=== PATIENT | female | born 1975 | race Hispanic/Latino ===

== ENCOUNTER 2017-12-13 00:06 | Emergency (ER) | payer OTHER ==
[2017-12-13] MEDS ORDERED: IBUPROFEN 400 MG TABLET ONE (00:09)
[2017-12-13] MEDS ORDERED: IBUPROFEN 200 MG TAB ONE (00:09)
== END 2017-12-13 00:33 | disposition home or self-care (01) ==
LOC: EDH 00:06
DX: S19.89XA Other specified injuries of other specified part of neck, initial encounter (principal); M54.9 Dorsalgia, unspecified; V49.49XA Driver injured in collision with other motor vehicles in traffic accident, initial encounter; Y93.89 Activity, other specified; Y92.89 Other specified places as the place of occurrence of the external cause; Y99.8 Other external cause status

== ENCOUNTER 2018-05-06 00:50 | Emergency (ER) | payer OTHER ==
[2018-05-06] MEDS ORDERED: ACETAMINOPHEN-CODEINE 300/30MG TAB ONE (01:35)
== END 2018-05-06 05:02 | disposition home or self-care (01) ==
LOC: EDH 00:50
DX: M54.2 Cervicalgia (principal); M54.6 Pain in thoracic spine; Z98.51 Tubal ligation status
CPT/HCPCS: 72125; 72128

== ENCOUNTER 2018-09-25 22:03 | Emergency (ER) | payer OTHER ==
[2018-09-25] MEDS ORDERED: ASPIRIN 325 MG TABLET ONE (22:12)
[2018-09-25 22:17] LABS: BASOPHILS % (AUTO) 0.4 % (0.0-5.0); EOSINOPHILS % (AUTO) 1.8 % (0.0-8.0); HEMATOCRIT 38.3 % (36-48); LYMPHOCYTES % (AUTO) 38.5 % (21.0-51.0); MEAN CORPUSCULAR HEMOGLOBIN 30.3 pg (27.0-33.0); MEAN CORPUSCULAR HGB CONC 33.7 g/dL (32.0-36.0); MEAN CORPUSCULAR VOLUME 89.8 fL (79-99); MONOCYTES % (AUTO) 7.1 % (3.0-13.0); NEUTROPHILS % (AUTO) 52.2 % (40.0-77.0); PLATELET COUNT (AUTO) 292 K/uL (130-400); RED BLOOD CELL COUNT(AUTO) 4.27 MIL/uL (4.00-5.50); RED CELL DISTRIBUTION WIDTH 13.3 % (11.0-15.5)
[2018-09-25 22:28] LABS: CREATININE 0.8 mg/dL (0.5-1.5); POTASSIUM 3.4 mmol/L (3.5-5.1)
[2018-09-25 22:33] LABS: ALBUMIN 3.3 g/dL (3.5-5.0); BILIRUBIN,TOTAL 0.3 mg/dL (0.2-1.0); TOTAL PROTEIN, SERUM 7.3 g/dL (6.0-8.3)
[2018-09-25 22:52] LABS: B-TYPE NATRIURETIC PEPTIDE 6 pg/mL (0-100)
== END 2018-09-26 00:10 | disposition home or self-care (01) ==
LOC: EDH 22:03
DX: R07.89 Other chest pain (principal)
CPT/HCPCS: 36415; 71045; 80053; 82550; 83880; 84484; 85025; 93005; 94761

== ENCOUNTER 2019-01-06 23:38 | Emergency (ER) | payer SELFPAY ==
[2019-01-07 00:23] LABS: APPEARANCE,URINE Cloudy (CLEAR); BILIRUBIN,URINE Negative (NEGATIVE); COLOR,URINE Yellow (YELLOW); GLUCOSE, URINE (UA) Negative (NEGATIVE); KETONES,URINE 40 mg/dL (NEGATIVE); LEUKOCYTE ESTERASE ,URINE Large (NEGATIVE); NITRATE,URINE Positive (NEGATIVE); OCCULT BLOOD,URINE Large (NEGATIVE); PH,URINE 5.5 (5.0-8.0); PROTEIN,URINE Trace (NEGATIVE)
[2019-01-07 00:29] LABS: HCG,QUAL RESULT NEGATIVE (NEGATIVE)
[2019-01-07 00:35] LABS: BACTERIA,URINE Moderate /HPF (None Seen); WBC,URINE 51-100 /HPF (0-1)
[2019-01-07] MEDS ORDERED: LIDOCAINE HCL MPF 1% 5ML VIAL ONE (00:40)
[2019-01-07] MEDS ORDERED: PHENAZOPYRIDINE HCL 200 MG TABLET ONE (00:40)
[2019-01-07] MEDS ORDERED: CEFTRIAXONE SODIUM 1 GM ONE (00:40)
[2019-01-07] MEDS ORDERED: ONDANSETRON ODT 4 MG TAB ONE (00:41)
== END 2019-01-07 01:01 | disposition home or self-care (01) ==
LOC: EDH 23:38
DX: N39.0 Urinary tract infection, site not specified (principal); Z98.51 Tubal ligation status
CPT/HCPCS: 81001; 81025; 87077; 87088; 87186; 96372; 99283; J0696; J3490

== ENCOUNTER 2019-04-04 23:57 | Emergency (ER) | payer OTHER ==
[2019-04-05 00:45] LABS: BASOPHILS % (AUTO) 0.6 % (0.0-5.0); EOSINOPHILS % (AUTO) 1.5 % (0.0-8.0); HEMATOCRIT 38.3 % (36-48); LYMPHOCYTES % (AUTO) 32.7 % (21.0-51.0); MEAN CORPUSCULAR HEMOGLOBIN 30.5 pg (27.0-33.0); MEAN CORPUSCULAR VOLUME 89.7 fL (79-99); MONOCYTES % (AUTO) 7.7 % (3.0-13.0); NEUTROPHILS % (AUTO) 57.5 % (40.0-77.0); PLATELET COUNT (AUTO) 271 K/uL (130-400); RED BLOOD CELL COUNT(AUTO) 4.27 MIL/uL (4.00-5.50); RED CELL DISTRIBUTION WIDTH 13.4 % (11.0-15.5); WHITE BLOOD COUNT (AUTO) 8.1 K/uL (4.8-10.8)
[2019-04-05 00:51] LABS: RAPID GROUP A STREP NEGATIVE (NEGATIVE)
[2019-04-05 00:58] LABS: CREATININE 0.7 mg/dL (0.5-1.5); POTASSIUM 3.2 mmol/L (3.5-5.1)
[2019-04-05 01:03] LABS: ALBUMIN 3.2 g/dL (3.5-5.0); BILIRUBIN,TOTAL 0.3 mg/dL (0.2-1.0)
[2019-04-05 01:46] LABS: HCG,QUAL RESULT NEGATIVE (NEGATIVE)
[2019-04-05 01:48] LABS: AMPHET/METH SCREEN,URINE NEGATIVE (NEGATIVE); BARBITURATE SCREEN, URINE NEGATIVE (NEGATIVE); BENZODIAZEPINES SCREEN,URINE NEGATIVE (NEGATIVE); CANNABINOID SCREEN,URINE NEGATIVE (NEGATIVE); COCAINE SCREEN,URINE NEGATIVE (NEGATIVE); OPIATE SCREEN,URINE NEGATIVE (NEGATIVE); PHENCYCLIDINE SCREEN,URINE NEGATIVE (NEGATIVE)
[2019-04-05] MEDS ORDERED: POTASSIUM CHLORIDE 20 MEQ ERTAB PO ONE (02:06)
== END 2019-04-05 03:58 | disposition home or self-care (01) ==
LOC: EDH 23:57
DX: R51 Headache (principal); R42 Dizziness and giddiness; Z98.51 Tubal ligation status
CPT/HCPCS: 36415; 80053; 80305; 81025; 85025; 87804; 87880; 96360; 96361

== ENCOUNTER 2020-05-18 23:54 | Emergency (ER) | payer SELFPAY ==
[2020-05-19] MEDS ORDERED: FAMOTIDINE 20MG TAB 20 MG TAB ONE (02:37)
[2020-05-19] MEDS ORDERED: PANTOPRAZOLE SODIUM 40 MG TABLET.DR ONE (02:37)
== END 2020-05-19 03:24 | disposition home or self-care (01) ==
LOC: EDH 23:54
DX: U07.1 COVID-19 (principal); B34.9 Viral infection, unspecified; K29.00 Acute gastritis without bleeding; Z79.899 Other long term (current) drug therapy
CPT/HCPCS: 36415; 87633; 87804 ×2; 99283; U0003

== ENCOUNTER 2021-08-18 18:33 | Emergency (ER) | payer OTHER, SELFPAY ==
[~2021-08-18] VITALS: Ht 147.3 cm; Wt 93.0 kg
[2021-08-18] MEDS ORDERED: PHENAZOPYRIDINE HCL 200 MG TABLET PO ONE (19:00)
[2021-08-18] MEDS ORDERED: CEFTRIAXONE 1G VIAL IM ONE (19:00)
[2021-08-18 19:23] LABS: APPEARANCE,URINE Clear (CLEAR); BILIRUBIN,URINE Negative (NEGATIVE); COLOR,URINE Yellow (YELLOW); GLUCOSE, URINE (UA) >=1000 mg/dL (NEGATIVE); KETONES,URINE Trace mg/dL (NEGATIVE); LEUKOCYTE ESTERASE ,URINE Negative (NEGATIVE); NITRATE,URINE Negative (NEGATIVE); OCCULT BLOOD,URINE Negative (NEGATIVE); PH,URINE 5.5 (5.0-8.0); PROTEIN,URINE Negative (NEGATIVE)
[2021-08-18] MEDS ORDERED: LIDOCAINE HCL-MPF 1% 2ML VIAL ONE (19:23)
[2021-08-18 19:28] LABS: RBC,URINE 0-1 /HPF (0-1); WBC,URINE 0-1 /HPF (0-1)
[2021-08-18 19:29] LABS: BACTERIA,URINE Rare /HPF (None Seen); SQUAMOUS EPITHELIAL CELL,UR Few /HPF (0-2); YEAST,URINE BUDDING Rare /HPF (None Seen)
[2021-08-18] MEDS ORDERED: FLUC150T PO (19:47)
[2021-08-18] MEDS ORDERED: PHEN-847 PO (19:47)
[2021-08-18 20:00] VITALS: BP 132/76
[2021-08-18] MEDS ORDERED: FLUCONAZOLE 100 MG TAB PO ONE (20:00)
== END 2021-08-18 20:00 | disposition home or self-care (01) ==
LOC: EDH 18:33
DX: B37.9 Candidiasis, unspecified (principal); R30.0 Dysuria; E11.9 Type 2 diabetes mellitus without complications
CPT/HCPCS: 81001; 96372; 99283; J0696; J3490

== ENCOUNTER 2022-12-25 21:18 | Emergency (ER) | payer BC ==
[~2022-12-25] VITALS: Ht 152.4 cm; Wt 90.0 kg
[~2022-12-25 21:18] MED LIST: FLUC150T PO; PHEN-847 PO
[2022-12-25] MEDS ORDERED: MORPHINE 2 MG SYG IVP ONE (22:00)
[2022-12-25] MEDS ORDERED: LACTATED RINGERS 1000ML 1,000 ML IV ONE (22:00)
[2022-12-25] MEDS ORDERED: ONDANSETRON 4MG INJ IVP ONE (22:00)
[2022-12-25] MEDS ORDERED: ZOSYN 3.375GM +NS 50ML IVPB ONE (22:00)
[2022-12-25 22:08] LABS: BASOPHILS % (AUTO) 0.6 % (0.0-5.0); EOSINOPHILS % (AUTO) 1.7 % (0.0-8.0); HEMATOCRIT 37.9 % (36-48); MEAN CORPUSCULAR HEMOGLOBIN 26.4 pg (27.0-33.0); MEAN CORPUSCULAR HGB CONC 31.9 g/dL (32.0-36.0); MEAN CORPUSCULAR VOLUME 82.6 fL (79-99); MONOCYTES % (AUTO) 6.4 % (3.0-13.0); NEUTROPHILS % (AUTO) 45.2 % (40.0-77.0); PLATELET COUNT (AUTO) 307 K/uL (130-400); RED BLOOD CELL COUNT(AUTO) 4.59 MIL/uL (4.00-5.50); RED CELL DISTRIBUTION WIDTH 13.7 % (11.0-15.5); WHITE BLOOD COUNT (AUTO) 7.2 K/uL (4.8-10.8)
[2022-12-25 22:15] LABS: APPEARANCE,URINE CLEAR (CLEAR); BILIRUBIN,URINE NEGATIVE (NEGATIVE); COLOR,URINE LIGHT-YELLOW (YELLOW); GLUCOSE, URINE (UA) >=1000 mg/dL (NEGATIVE); KETONES,URINE NEGATIVE (NEGATIVE); LEUKOCYTE ESTERASE ,URINE NEGATIVE Leu/uL (NEGATIVE); NITRATE,URINE NEGATIVE (NEGATIVE); OCCULT BLOOD,URINE NEGATIVE (NEGATIVE); PROTEIN,URINE NEGATIVE (NEGATIVE); UROBILINOGEN,URINE 0.2 mg/dL (0.2-1.0)
[2022-12-25 22:18] LABS: CREATININE 0.7 mg/dL (0.5-1.5); POTASSIUM 3.1 mmol/L (3.5-5.1)
[2022-12-25 22:19] LABS: BACTERIA,URINE RARE /HPF (None Seen); MUCUS,URINE RARE LPF (None Seen); SQUAMOUS EPITHELIAL CELL,UR MOD /HPF (0-2); YEAST,URINE BUDDING FEW /HPF (None Seen)
[2022-12-25 22:23] LABS: ALBUMIN 3.3 g/dL (3.5-5.0); TOTAL PROTEIN, SERUM 7.4 g/dL (6.0-8.3)
[2022-12-25] MEDS ORDERED: IOHEXOL 350 MG/ML 100ML INFUS..BTL IV ONE (23:19)
[2022-12-25 23:46] VITALS: BP 107/55
[2022-12-26] MEDS ORDERED: IBUP-1493 PO (00:14)
[2022-12-26] MEDS ORDERED: AMOX1TAB16 PO (00:14)
[2022-12-26] MEDS ORDERED: LEVO-70 PO (00:14)
[2022-12-26] MEDS ORDERED: DOCU-116 PO (00:33)
[2022-12-26] MEDS ORDERED: MAGNESIUM HYDROXIDE 30 ML/UDCUP PO SCH (01:00)
== END 2022-12-26 01:32 | disposition home or self-care (01) ==
LOC: EDH 21:18
DX: R10.32 Left lower quadrant pain (principal); E11.9 Type 2 diabetes mellitus without complications; Z90.49 Acquired absence of other specified parts of digestive tract; Z79.1 Long term (current) use of non-steroidal anti-inflammatories (NSAID)
CPT/HCPCS: 99284; 74177; 96365; 96375; 82150; 84484; 80053; 83690; 85025; 81001; 81025; 36415; 93005; J7120; J2405; J2543; Q9967